=== PATIENT | male | born 2000 | race Caucasian/White ===

== ENCOUNTER 2019-03-19 20:37 | Emergency (ER) | payer SELFPAY ==
[~2019-03-19] VITALS: Ht 170.2 cm; Wt 74.0 kg
[2019-03-19] MEDS ORDERED: KETOROLAC 30MG/ML VIAL IM ONE (21:45)
[2019-03-19] MEDS ORDERED: ACETAMINOPHEN WITH CODEINE 300/30MG TABLET PO ONE (22:30)
[2019-03-19 23:30] VITALS: BP 142/78
== END 2019-03-19 23:33 | disposition home or self-care (01) ==
LOC: EDBD → ER 20:37
DX: S82.002A Unspecified fracture of left patella, initial encounter for closed fracture (principal); X50.1XXA Overexertion from prolonged static or awkward postures, initial encounter; Y93.89 Activity, other specified; Y92.9 Unspecified place or not applicable
CPT/HCPCS: 29505; 73562; 96372; 99283; J1885; L1830

== ENCOUNTER 2019-03-22 09:09 | Emergency (ER) | payer SELFPAY ==
[~2019-03-22] VITALS: Ht 170.2 cm; Wt 74.0 kg
[2019-03-22 10:38] VITALS: BP 132/78
== END 2019-03-22 10:39 | disposition home or self-care (01) ==
LOC: ER 10:29
DX: S82.002A Unspecified fracture of left patella, initial encounter for closed fracture (principal); X58.XXXA Exposure to other specified factors, initial encounter; Y93.9 Activity, unspecified
CPT/HCPCS: 99281